=== PATIENT | female | born 1955 | race Caucasian/White ===

== ENCOUNTER → 2024-01-21 | Outpatient (REF) | payer MEDICARE, OTHER, SELFPAY | LOC: DHSLP | PROVIDERS: ATTENDING PHYSICIAN Internal Medicine Critical Care Medicine; FAMILY PHYSICIAN Physician Assistant | DX: G47.61 Periodic limb movement disorder (principal); R06.83 Snoring | CPT/HCPCS: 95810 ==

== ENCOUNTER 2024-03-06 10:41 | Emergency (ER) | payer MEDICARE, OTHER, SELFPAY ==
[2024-03-06 10:45] VITALS: BP 126/65
[2024-03-06 11:31] VITALS: BMI 26.3
[2024-03-06 12:00] VITALS: BP 113/47
[2024-03-06] MEDS: NSS 1000 IV (12:12)
[2024-03-06 12:24] LABS: % Basophils 0.3 % (0-2); % Eosinophils 0.9 % (0-6); % Immature Granulocytes 0.4 % (0-0.5); % Lymphocytes 26.8 % (20.5-51.1); % Monocytes 9.1 % (1.7-9.3); % Neutrophils 62.5 % (42.2-75.2); Absolute Eosinophils 0.1 10^3/uL (0-0.7); Absolute Lymphocytes 1.9 10^3/uL (1.2-3.4); Absolute Monocytes 0.6 10^3/uL (0.1-0.6); Absolute Neutrophils 4.4 10^3/uL (1.4-6.5); Hematocrit 41.8 % (37.0-47.0); Hemoglobin 14.4 g/dL (12.0-16.0); Mean Corp Hgb Conc. 34.4 g/dL (33.0-37.0); Mean Corpuscular Hgb 32.1 pg (27.0-31.0); Mean Corpuscular Volume 93.3 fL (81.0-99.0); Mean Platelet Volume 10.4 fL (7.4-10.4); Nucleated Red Blood Cells % 0 %; Platelet Count 185 10^3/uL (130-400); Red Blood Cell Count 4.48 10^6/uL (4.20-5.40); Red Cell Dist. Width 13.1 % (11.5-14.5)
[2024-03-06 12:39] LABS: ALT (SGPT) 18 U/L (0-35); AST (SGOT) 24 U/L (14-36); Alkaline Phosphatase 67 U/L (38-126); Blood Urea Nitrogen 12 mg/dl (7-17); Calcium 9.4 mg/dl (8.4-10.2); Carbon Dioxide 24 mmol/L (22-30); Chloride 110 mmol/L (98-107); Estimated Creatinine Clearance 63 ml/min; Glucose 110 mg/dl (70-99); Magnesium 2.3 mg/dl (1.6-2.3); Sodium 140 mmol/L (135-145); Total Bilirubin 0.6 mg/dl (0.2-1.3); Total Protein 6.5 g/dl (6.3-8.2); eGFR > 60.00
[2024-03-06 13:00] VITALS: BP 114/50
[2024-03-06 13:32] LABS: TSH 0.74 uIU/ml (0.47-4.68)
--- NOTE | 2024-03-06 14:00 | ED.GENMED ---
History of Present Illness
General
Chief Complaint: Dizziness
Source: patient and family
Time Seen by Provider: 03/06/24 11:10
Travel History
Have you had any contact with someone who has COVID-19?: No
Do you have any symptoms of coronavirus? Fever > 100 degrees, chills, cough, shortness of breath, sore throat, loss of taste or smell, muscle aches, or headache?: No
History of Present Illness
History of Present Illness:
This is a 69-year-old female who recently has been undergoing difficulties with major depression. Patient arrives today because her sister who is a nurse was worried because she has been having lightheadedness and dizziness. Patient states she has
had diarrhea and poor appetite over the last month. She also has been trying to wean herself off of Topamax that she was put on because of weight gain. The patient states that she was on 200 mg daily and she went down to 100 mg for 1 week and now
25 mg over the last 2 days. No chest pain. No shortness of breath. No fevers. No melena. No hematochezia. She does have a plan in place for her depression as she is followed by crisis
Past History
Past History
ED Past Medical History: Psychiatric (Major depression)
Phy Exam
Physical Exam
Physical Exam:
CONSTITUTIONAL Patient alert and oriented to person, place and time. Well-appearing. Vital signs reviewed.
HEAD atraumatic, normocephalic.
EYES eyelids normal to inspection, Pupils equally round and reactive to light, Extraocular muscles intact, Conjunctiva normal, Sclera normal.
NECK normal range of motion, Trachea midline, no jugular venous distention.
RESPIRATORY CHEST No respiratory distress noted, Chest expansion equal, Bilateral breath sounds clear.
CARDIOVASCULAR regular rate and rhythm, Heart sounds normal.
ABDOMEN abdomen nontender, Bowel sounds normal. No distention.
BACK normal inspection, no obvious deformities
UPPER EXTREMITY range of motion normal, Motor strength normal, no cyanosis, no edema.
LOWER EXTREMITY range of motion normal, Motor strength normal, no cyanosis, no edema.
NEURO Speech normal, No focal motor deficits, Jaime coma scale 15, Memory normal, Cranial Nerves intact to screening exam.
SKIN skin warm, dry, and normal in color.
PSYCHIATRIC patient oriented to person place and time, Normal affect.
Course
Orders/Labs/Results
Orders:
Orders
03/06/24 10:52
Electrocardiogram (*1) Urgent
Reason for Study: Vertigo / Dizzy
EKG- Treatment ONCE
03/06/24 11:41
0.9% Sodium Chloride 1000 ml [Nss] 1,000 ml IV BOLUS
03/06/24 12:17
Complete Blood Count/With Diff Urgent
Comprehensive Metabolic Panel Urgent
Magnesium Urgent
TSH Urgent
Abnormal Lab Results
03/06/24
12:17
MCH 32.1 H pg
(27.0-31.0)
Chloride 110 H mmol/L
(98-107)
Glucose 110 H mg/dl
(70-99)
03/06/24 12:17
03/06/24 12:17
Vital Signs
Initial and Last Documented VS:
Initial Vital Signs
Temp Pulse Resp BP Pulse Ox
98.3 F 91 20 126/65 99
03/06/24 10:45 03/06/24 10:45 03/06/24 10:45 03/06/24 10:45 03/06/24 10:45
Last Documented Vital Signs
Temp Pulse Resp BP Pulse Ox
98.3 F 79 15 114/50 100
03/06/24 10:45 03/06/24 13:15 03/06/24 13:15 03/06/24 13:00 03/06/24 13:15
MDM/Problems Addressed
MDM/Problems Addressed:
Major depression, volume depletion, medication reaction
*Pulse Oximetry
Patient hypoxic: no
*EKG
Interpreted by ED Provider?: Yes
Interpretation: normal
Rate: normal
Rhythm: sinus
[place]: normal axis
QRS Pattern: normal QRS
Ischemia: no ischemia
*Materials Planning Analyst Interpretation
Rate: normal
Interpretation: normal
Rhythm: sinus
*Critical Care Note
Total Time (30-74mins, 75-104mins- exclusive of procedures): Not Applicable
Data Reviewed
Source: patient and family
Further Testing Considered But Not Given:
Considered troponin but no chest pain or concern for ACS
Patient Management
Discussion with other providers: Other (Case discussed with pharmacy who recommends that the Topamax be weaned down by 25 to 50 mg every week.)
Escalation/DeEscalation of care consider admission/obs:
Patient appears quite well. Nonfocal exam. Okay for discharge. Patient was hydrated. Recommended slow progression of her Topamax mean and then go to 50 for the next week and then 25 mg thereafter for 1 week and then off
ED Attending Note
-
Portions of this chart may have been created with voice recognition software.� Occasional wrong word or��sound alike� substitutions may have occurred due to the inherent limitations of voice recognition software.
Discharge Plan
Departure
Patient Disposition: Home (Routine Discharge)
Date of Disposition: 03/06/24
Time of Disposition: 14:05
Patient with high blood pressure during this ER visit?: No
Discharge Problem:
Lightheadedness
Instructions: Dizziness, Nonvertigo, (DC)
Prescriptions:
No Action
Caplyta 42 mg Capsule
42 mg PO DAILY
Auvelity 45-105 mg Tablet, Ir And Er, Biphasic
1 tab PO BID
Referrals:
Eligio Ruth, [Family Provider] -
Activity Restrictions/Additional Instructions:
Possible medication reaction
Please see your doctor in the next 2 to 3 days for follow-up and reevaluation. Please take 50 mg Topamax for next 1 week and then 25 mg for 1 week and then stop. Return immediately for chest pain, shortness of breath, palpitations and weakness of
any kind or any other concerns.
Interventions
Interventions:
*General Assessment Last Done: 03/06/24 13:18
ED- Fall Risk Assessment Last Done: 03/06/24 12:30
*ED COVID-19 Vaccine History Last Done: 03/06/24 13:18
ED- Neurological Assessment Last Done: 03/06/24 12:30
ED- Cardiac Assessment Last Done: 03/06/24 13:18
Discharge Date and Time
Print Language: [place] CITIZEN
== END 2024-03-06 14:46 | disposition home or self-care (01) ==
LOC: EMR 10:41
PROVIDERS: EMERGENCY PHYSICIAN Emergency Medicine; FAMILY PHYSICIAN Family Medicine
DX: R42 Dizziness and giddiness (principal); R19.7 Diarrhea, unspecified; F32.9 Major depressive disorder, single episode, unspecified
CPT/HCPCS: 99284; 96360; 80053; 83735; 84443; 85025; 93005

== ENCOUNTER 2024-03-18 13:58 | Emergency (ER) | payer MEDICARE, OTHER, SELFPAY ==
[2024-03-18 14:01] VITALS: BP 157/79
--- NOTE | 2024-03-18 14:32 | ED.GENMED ---
History of Present Illness
General
Chief Complaint: Fainting Sensation
Source: patient
Exam Limitations: none
Time Seen by Provider: 03/18/24 14:24
Travel History
Have you had any contact with someone who has COVID-19?: No
Do you have any symptoms of coronavirus? Fever > 100 degrees, chills, cough, shortness of breath, sore throat, loss of taste or smell, muscle aches, or headache?: No
History of Present Illness
History of Present Illness:
Patient is feeling lightheaded and slightly woozy ever since starting her new medications. These were started 2 weeks ago. She was seen today had outpatient labs earlier in the week. They wanted her medically checked to make sure there is no
other issue. She denies chest pain shortness of breath syncope headache fever chills or other complaints.
Past History
Past History
ED Past Medical History: Hypercholesterolemia and Psychiatric (Major depression)
ED Past Surgical History: Gynecological (Tubal ligation) and Orthopedic
Review of Systems
Review of Systems
All Other Systems: Not applicable
Constitutional: Denies fever or chills
Respiratory: Reports no symptoms
Cardiac: Reports palpitations; Denies chest pain or syncope
ABD/GI: Reports no symptoms
Phy Exam
Physical Exam
Physical Exam:
GENERAL: Alert and oriented in no apparent distress
EYE: Orbits normal.
NECK: Supple, no thyroid palpable
ENT: Pharynx without erythema
CARDIAC: Regular rate and rhythm without any obvious murmurs.
LUNGS: Clear breath sounds,normal
ABDOMEN: Soft, without focal tenderness or distention
NEUROLOGICAL: Alert and oriented , grossly non-focal
SKIN: Warm and dry, no rash or lesion, no discoloration, skin intact.
MUSCULOSKELETAL: No edema,no deformity.Good color
PSYCH: Normal and appropriate interaction.
Course
Orders/Labs/Results
Orders:
Orders
03/18/24 14:52
Electrocardiogram (*1) Urgent
Reason for Study: Other
Other Reason for Exam: medications
03/18/24 14:53
EKG- Treatment ONCE
03/18/24 15:49
Urinalysis Reflex To Culture Urgent
Date Specimen was Collected: 03/18/24
Time Specimen was Collected: 14:53
Urine Microscopic Reflex Cult Urgent
Abnormal Lab Results
03/18/24
15:49
Leukocyte Esterase Rfl Trace A
(Negative)
Urine Bacteria (Reflex) Few A
(Negative)
Vital Signs
Initial and Last Documented VS:
Initial Vital Signs
Temp Pulse Resp BP Pulse Ox
98.0 F 91 16 157/79 98
03/18/24 14:01 03/18/24 14:01 03/18/24 14:01 03/18/24 14:01 03/18/24 14:01
Last Documented Vital Signs
Temp Pulse Resp BP Pulse Ox
98.0 F 91 16 157/79 98
03/18/24 14:01 03/18/24 14:01 03/18/24 14:01 03/18/24 14:01 03/18/24 14:01
MDM/Problems Addressed
Differential Diagnosis Includes:
Patient complaining of vague light headedness. She specifically stated this started when they started her new medications. She denies any other symptoms. She is clinically very stable. Labs were reviewed from earlier in the week with a normal
CBC, BMP, thyroids. Urine was mildly contaminated with greater than 10 squamous cells. I highly suspect this is medication related. We will get an EKG and repeat her urine trying to get a better specimen. No reason at this time to repeat labs.
*Pulse Oximetry
Patient hypoxic: no
*EKG
Interpreted by ED Provider?: Yes
Interpretation: abnormal
Comparison EKG: no changes
Heart Rate: 92
Rhythm: sinus
[place]: normal axis
Interval: normal interval
QRS Pattern: normal QRS
Ischemia: non-specific ST changes
*Critical Care Note
Total Time (30-74mins, 75-104mins- exclusive of procedures): Not Applicable
Data Reviewed
Review of Other/Old Records Reveals: Labs and Testing
Update Note
Update Note:
No obvious UTI. Patient is medically stable. Recent labs all normal. Exam is normal. EKG is stable. I suspect her medications are causing her issues. Stable for discharge to follow-up with [facility]
ED Attending Note
-
Portions of this chart may have been created with voice recognition software.� Occasional wrong word or��sound alike� substitutions may have occurred due to the inherent limitations of voice recognition software.
Discharge Plan
Departure
Patient Disposition: Home (Routine Discharge)
Date of Disposition: 03/18/24
Time of Disposition: 17:24
Patient with high blood pressure during this ER visit?: Yes
Discharge Problem:
Lightheadedness, Suspect medication related
Instructions: Dizziness, Nonvertigo, (DC), BLOOD PRESSURE
Prescriptions:
No Action
Caplyta 42 mg Capsule
42 mg PO DAILY
Auvelity 45-105 mg Tablet, Ir And Er, Biphasic
1 tab PO BID
Referrals:
Eligio Ruth, [Family Provider] - Follow up in 2-3 days
Activity Restrictions/Additional Instructions:
Follow-up with [facility] concerning your medications
Interventions
Interventions:
*Risk Screen - Suicide Last Done: 03/18/24 14:59
*General Assessment Last Done: 03/18/24 14:59
*Neglect/Abuse Screening Last Done: 03/18/24 14:59
*ED COVID-19 Vaccine History Last Done: 03/18/24 14:01
Discharge Date and Time
Print Language: KHMER
[2024-03-18 15:24] VITALS: BP 132/83; BP 136/58; BP 138/63; PULSE 85; PULSE 91; PULSE 92
[2024-03-18 16:06] LABS: Urine Albumin Negative (Neg - Trace); Urine Bilirubin Negative (Negative); Urine Character Clear (Clear); Urine Color Yellow; Urine Glucose Negative (Negative); Urine Ketone Negative (Negative); Urine Leukocyte Trace (Negative); Urine Nitrite Negative (Negative); Urine Occult Blood Negative (Negative); Urine Specific Gravity 1.015 (<1.030); Urine Urobilinogen Negative (Neg - 1+)
[2024-03-18 16:34] LABS: Urine Bacteria Few (Negative); Urine Red Blood Cell 0-2 /HPF (0-2); Urine Squamous Cell 0-2 /LPF (Few); Urine White Cell 0-2 /HPF (0-5)
[2024-03-18 17:38] VITALS: BP 146/82
== END 2024-03-18 17:40 | disposition home or self-care (01) ==
LOC: EMR 13:58
PROVIDERS: EMERGENCY PHYSICIAN Emergency Medicine; FAMILY PHYSICIAN Family Medicine
DX: R42 Dizziness and giddiness (principal); R00.2 Palpitations; R03.0 Elevated blood-pressure reading, without diagnosis of hypertension; E78.00 Pure hypercholesterolemia, unspecified; F32.9 Major depressive disorder, single episode, unspecified
CPT/HCPCS: 99283; 81003; 81015; 93005